=== PATIENT | male | born 1975 | race Two or more races ===

== ENCOUNTER → 2017-04-14 09:43 | Outpatient (CLI) | payer SELFPAY ==
[2017-04-14 10:07] LABS: BASOPHILS 0.9 % (0-2); EOSINOPHILS 3.3 % (0-7); HEMATOCRIT 50.5 % (42.0-54.0); HEMOGLOBIN 18.2 g/dL (13.5-17.5); IMMATURE GRANULOCYTES 0.3 % (0-5); LYMPHOCYTES 35.9 % (15-50); MCH 31.8 pg (26.0-34.0); MCV 88.3 fL (80.0-100.0); MEAN PLATELET VOLUME 10.8 fL (7.4-10.4); NEUTROPHILS 46.6 % (40-80); PLATELET COUNT 190 10x3/uL (130-400); RBC 5.72 10x6/uL (4.20-6.10); RDW 12.7 % (11.5-14.5); WBC 6.6 10x3/uL (4.8-10.8)
[2017-04-14 10:23] LABS: APTT 27.4 SECONDS (22.8-39.4); INR 1.03 (0.85-1.17); PROTIME 13.1 SECONDS (11.6-15.0)
== END | disposition home or self-care (01) ==
LOC: D.LAB 09:43
PROVIDERS: Internal Medicine Pulmonary Disease
DX: R04.2 Hemoptysis (principal)

== ENCOUNTER → 2018-02-17 09:09 | Outpatient (CLI) | payer SELFPAY ==
[2018-02-17 10:30] LABS: EOSINOPHILS 4.3 % (0-7); HEMATOCRIT 50.1 % (42.0-54.0); HEMOGLOBIN 18.5 g/dL (13.5-17.5); IMMATURE GRANULOCYTES 0.2 % (0-5); LYMPHOCYTES 29.7 % (15-50); MCH 32.3 pg (26.0-34.0); MCHC 36.9 g/dL (31.0-37.0); MCV 87.6 fL (80.0-100.0); NEUTROPHILS 52.8 % (40-80); PLATELET COUNT 203 10x3/uL (130-400); RBC 5.72 10x6/uL (4.20-6.10); RDW 12.5 % (11.5-14.5); WBC 6.3 10x3/uL (4.8-10.8)
== END | disposition home or self-care (01) ==
LOC: D.RAD 09:09
PROVIDERS: Internal Medicine Pulmonary Disease
DX: J01.90 Acute sinusitis, unspecified (principal); J98.11 Atelectasis; R04.2 Hemoptysis